=== PATIENT | female | born 1950 | race African-American/Black ===

== ENCOUNTER 2021-05-18 19:12 | Emergency (ER) | payer MEDICARE, MEDICAID ==
[~2021-05-18] VITALS: Ht 165.1 cm; Wt 87.0 kg
[2021-05-18 19:15] VITALS: BP 151/78
[2021-05-18 21:42] LABS: BASOPHILS % 0.8 % (0.0-2.0); HEMATOCRIT. 39.6 % (36.0-48.0); HEMOGLOBIN. 13.1 g/dL (12.0-16.0); LYMPHOCYTES % 31.3 % (20.0-50.0); MEAN CORPUSCULAR HEMOGLOBIN 29.3 pg (28.0-32.0); MEAN CORPUSCULAR VOLUME 88.3 fL (81.0-99.0); MONOCYTES % 6.8 % (2.0-8.0); NEUTROPHILS % 59.1 % (40.0-76.0); RED BLOOD CELL COUNT 4.49 mill/uL (4.2-5.4); RED CELL DISTRIBUTION WIDTH 14.8 % (11.6-14.6)
[2021-05-18 21:48] LABS: INR 1.1; PROTHROMBIN TIME 11.5 sec (9.6-11.0)
[2021-05-18 21:49] LABS: CHLORIDE 107 mEq/L (98-107)
[2021-05-18 21:51] LABS: HCG SCREEN NEGATIVE
[2021-05-18] MEDS ORDERED: ACETAMINOPHEN 325MG TABLET PO NR (22:45)
[2021-05-18] MEDS ORDERED: POTASSIUM CHLORIDE 20MEQ TABLET SR PO NR (22:45)
[2021-05-18 22:50] LABS: MEAN PLATELET VOLUME 8.4 fl (7.4-10.4); PLATELET 201 x1000/uL (130-400)
[2021-05-18] MEDS ORDERED: POLY119P2 MT (23:56)
[2021-05-18] MEDS ORDERED: POTA20TA82 MT (23:56)
== END 2021-05-19 00:34 | disposition home or self-care (01) ==
LOC: ER 20:20
DX: K59.00 Constipation, unspecified (principal); I10 Essential (primary) hypertension; Z90.49 Acquired absence of other specified parts of digestive tract
CPT/HCPCS: 36415; 74176; 80053; 83605; 84703; 85025; 99284